=== PATIENT | male | born 1965 | race Caucasian/White ===

== ENCOUNTER 2020-02-05 13:10 | Emergency (ER) | payer BC, OTHER ==
[2020-02-05 13:33] VITALS: BP 165/106
--- NOTE | 2020-02-05 13:52 | UC ---
Hand/Wrist HPI - HPI Summary HPI Summary: Pt presents with c/o sudden onset of right lateral wrist pain, weakness that began after closing a van door that was a sliding door. Pt denies any injury. Pt reports that pain as radiating from distal ulna across hand to finger tips, to elbow. - History Of Current Complaint Chief Complaint: UCUpperExtremity Stated Complaint: RT WRIST INJURY Time Seen by Provider: 02/05/20 13:23 Hx Obtained From: Patient ?: No Onset/Duration: Sudden Onset, Still Present Severity Initially: Mild Severity Currently: Moderate Pain Intensity: 3 Character Of Pain: Sharp, Dull, Aching Aggravating Factor(s): Movement, Lifting, Flexion, Extension Alleviating Factor(s): Rest - and position, pt is sitting with right elbow bent in 90 degree position. Associated Signs And Symptoms: Positive: Weakness Related History: Occupational Injury, Dominant Hand Right - Risk Factors Compartment Syndrome Risk Factors: Pain - Allergies/Home Medications Allergies/Adverse Reactions: Allergies Allergy/AdvReac Type Severity Reaction Status Date / Time No Known Allergies Allergy Verified 02/05/20 13:33 Home Medications: Home Medications Lisinopril TAB* [Prinivil TAB*] 5 mg PO DAILY 02/05/20 [History Confirmed ] PMH/Surg Hx/FS Hx/Imm Hx Previously Healthy: Yes - Surgical History Surgical History: None - Family History Known Family History: Positive: Cardiac Disease - Social History Occupation: Employed Full-time Lives: With Family Alcohol Use: None Substance Use Type: None Smoking Status (MU): Never Smoked Tobacco Have You Smoked in the Last Year: No Review of Systems All Other Systems Reviewed And Are Negative: Yes Constitutional: Positive: Negative Skin: Positive: Negative Eyes: Positive: Negative ENT: Positive: Negative Respiratory: Positive: Negative Cardiovascular: Positive: Negative Gastrointestinal: Positive: Negative Genitourinary: Positive: Negative Motor: Positive: Decreased ROM - right hand and wrist, c/o pain with wrist and hand movements Neurovascular: Positive: Negative Musculoskeletal: Positive: Arthralgia, Decreased ROM - painful ROM, Myalgia Neurological/Mental Status: Positive: Negative Psychological: Positive: Negative Is Patient Immunocompromised?: No Physical Exam Triage Information Reviewed: Yes Appearance: Pain Distress Vital Signs: Initial Vital Signs Temp 97.7 F 02/05/20 13:26 Pulse 75 02/05/20 13:26 Resp 18 04/17/20 13:26 BP 165/106 02/05/20 13:26 Pulse Ox 99 02/05/20 13:26 Vital Signs Reviewed: Yes Eye Exam: Normal ENT Exam: Normal ENT: Positive: Hearing grossly normal Neck exam: Normal Respiratory: Positive: No respiratory distress Musculoskeletal: Positive: Strength Limited @ - right wrist due to pain, ROM Limited @ - right hand and wrist Neurological Exam: Normal Psychological Exam: Normal Skin Exam: Normal Diagnostics - Radiology No standard instances Radiology Interpretation Completed By: Radiologist - negative Hand/Wrist Course/Dx - Differential Dx/Diagnosis Differential Diagnosis/HQI/PQRI: Dislocation, Fracture, Sprain, Strain, Tendonitis Provider Diagnosis: Acute pain of right wrist Discharge ED - Sign-Out/Discharge Documenting (check all that apply): Patient Departure All imaging exams completed and their final reports reviewed: No Studies - Discharge Plan Condition: Stable Disposition: HOME Patient Education Materials: Arthralgia (ED), Safe Use of NSAIDs (ED) Referrals: Denis Holguin MD [Medical Doctor] - Krystina Calderon MD [Primary Care Provider] - If Needed Additional Instructions: Please follow up with an orthopedic provider as needed. Please note that your blood pressure was elevated at today's visit. Please follow up with your PCP with regard to this finding. - Billing Disposition and Condition Condition: STABLE Disposition: Home
== END 2020-02-05 14:36 | disposition home or self-care (01) ==
LOC: UCCORT 13:10
DX: M25.531 Pain in right wrist (principal)
CPT/HCPCS: 99201; G0463